=== PATIENT | female | born 1950 | race Caucasian/White ===

== ENCOUNTER 2017-05-31 10:24 | Inpatient (IN) ==
[2017-05-31] MEDS ORDERED: Ipratropium/Albuterol Neb 3 ML IH STA (11:53)
[2017-05-31] MEDS ORDERED: predniSONE 20 MG TABLET PO STA (11:57)
--- NOTE | 2017-05-31 11:57 | Emergency Department Note ---
Disposition Clinical Impression: Acute exacerbation of chronic obstructive airways disease Disposition: Admitted As Inpatient General Adult HPI - General Chief complaint: ED Shortness of Breath/Dyspnea Stated complaint: possible pneumonia Time Seen by Provider: 05/31/17 11:11 Source: patient Limitations: no limitations - History of Present Illness HPI Narrative: Patient has not been to the doctor in over 20 years presents to the emergency department with shortness of breath worsened over the last couple of days. When she is not sick, she coughs on a daily basis but does not bring up sputum. For the last 2 days, she is coughing more, and been bringing up green sputum. No chest pain or discomfort. She had subjective fever but did not check her temperature. She was out running around in the yard playing with the dogs a week ago, now cannot walk across the room without getting short of breath. No orthopnea. No peripheral edema. She uses inhalers at home that she buys over the Internet, they usually help but for the last couple of days have not. Pain Scale: 0 - Related Data Home Medications Medication Instructions Recorded Confirmed No Known Home Drugs 05/31/17 05/31/17 Allergies Allergy/AdvReac Type Severity Reaction Status Date / Time Penicillins Allergy Rash Verified 05/31/17 10:38 All systems ED: reviewed and negative except as stated. Past Medical History - Past Medical History Medical history: Reports: no medical history Psychiatric history: Reports: anxiety [employer] history: Reports: bilateral tubal ligation - Social History Smoking Status: Current every day smoker Smokeless Tobacco Status: No Alcohol use: Reports: none Drug use: Reports: none Physical Exam Vital signs noted please see nurse's notes. Gen.: Well-developed, well-nourished patient lying in bed who appears nontoxic. Head: Atraumatic, normocephalic. Eyes: Sclerae anicteric. ENT: Mucous membranes moist. Neck: No JVD or hepatojugular reflux. Heart: Regular rate and rhythm without appreciable murmur. Lungs: Normal respiratory pattern without respiratory distress, several conversational dyspnea at the end of a long sentences. Breath sounds somewhat diminished at the right base, this is a subtle finding. Scattered mild end expiratory wheezes and rhonchi. Abdomen: Soft, nontender, nondistended, no guarding or peritoneal signs. Skin: Warm and dry without rash. Neurologic: Awake, alert with normal speech and mental status. Cranial nerves grossly intact. No focal deficits or lateralizing signs. Psychiatric: Normal mood and affect. Musculoskeletal: No peripheral edema. No signs of trauma or DVT. - General Limitations: no limitations General appearance: alert, in no apparent distress Course Vital Signs Temperature 97.9 F 05/31/17 10:38 Pulse Rate 63 05/31/17 10:38 Respiratory Rate 18 05/31/17 10:38 Blood Pressure 125/82 05/31/17 10:38 O2 Sat by Pulse Oximetry 92 05/31/17 10:38 Temperature 97.9 F 05/31/17 10:38 Pulse Rate 93 05/31/17 13:22 Respiratory Rate 18 05/31/17 12:10 Blood Pressure 128/86 05/31/17 13:22 O2 Sat by Pulse Oximetry 92 05/31/17 13:22 Oxygen Delivery Oxygen Delivery Nasal Cannula Medical Decision Making - MDM Narrative Medical decision making narrative: The patient likely has undiagnosed COPD. She has not been physician in 20 years , she is a [id number] smoking history, and her history of daily cough suggests chronic bronchitis. We will check a chest x-ray rule out pneumonia, if negative will treat for acute exacerbation of previously undiagnosed COPD. The patient, her and son all agree that she will follow up with our residency clinic and I gave her referral. The importance primary care follow- up and screening for diseases such as hypertension, colon cancer, and diabetes, among others, were explained to the patient. She and her family voiced understanding. Re-eval: After treatment with nebulizers, her oxygen was still hanging around 92 %. Her daughter, who is a nurse, has arrived, and says that she checked her pulse ox intermittently, and she usually runs about 96%. He walked around the department, she developed minimal dyspnea, but her oxygen saturations dropped into the low mid 80s. I had a discussion with the patient and with her family. She is still hesitant to stay, but now is willing to stay. I have ordered oral steroids and oral Levaquin (equivalent to parenteral Levaquin), as well as another round and nebulizers. She has not had an IV, and I do not believe she needs one. I spoke with the hospitalist, who agrees. I also ordered a nicotine patch, since one of the main reasons that she does not want stay seems to be her concern about not being able to smoke.
[2017-05-31] MEDS ORDERED: Albuterol 2.5 MG/3 ML NEBULIZER IH STA (14:32)
[2017-05-31] MEDS ORDERED: levoFLOXacin 500 MG TABLET PO ONE (14:33)
[2017-05-31] MEDS ORDERED: Ipratropium/Albuterol Neb 3 ML IH PRN (15:39)
[2017-05-31] MEDS ORDERED: Naloxone 0.4 MG/ML INJ IVP PRN ×2 (15:40→15:42)
--- NOTE | 2017-05-31 15:46 | Internal Med History&Physical ---
Date of Encounter: 05/31/17 Time of Encounter: 15:44 Assessment and Plan (1) Acute exacerbation of chronic obstructive airways disease Current visit: Yes Status: Acute IV azithromycin, IV steroids, DuoNeb's (2) Tobacco abuse Current visit: Yes Status: Acute Nicotine patch. Cessation discussed Internal Medicine - H&P: HPI Chief complaint: SOB History of present illness: Ms. Gillespie is a 67 year old female who presents with COPD exacerbation. She has not seen a doctor for more than 30 years and takes no medicines. She is however of one pack per day smoker for more than 25 years. She presents with a couple day history of shortness of breath. Associated with cough productive for greenish sputum. Shortness of breath on ambulation to 30- 20 feet. She reports improvement of shortness of breath when she sits in a hot tub. She does not have any previous diagnosis of COPD EXAMINATION: TWO VIEWS OF THE CHEST 05/31/2017 12:06 pm COMPARISON: None. HISTORY: ORDERING SYSTEM PROVIDED HISTORY: SOB/cough FINDINGS: The heart size is within normal limits. The pulmonary vasculature is also within normal limits. No acute infiltrates are seen. The costophrenic angles are sharp bilaterally. No pneumothoraces are noted. XR/XR chest 2V IMPRESSION: 1. No active pulmonary disease. Past Med Surg Social Fam HX - Past Medical History Medical history: no medical history Psychiatric history: anxiety - Social History Smoking Status: Current every day smoker Smokeless Tobacco Status: No Alcohol use: none Drug use: none Internal Medicine - H&P: Meds No Known Home Drugs 05/31/17 [History] 3 Allergy/AdvReac Type Severity Reaction Status Date / Time Penicillins Allergy Rash Verified 05/31/17 10:38 All Systems PM: A 10-system review of systems was performed and is negative for pertinent findings except as documented above in the HPI. Review of systems: ROS 14 point review of systems reviewed as best as possible given presentation. Pertinent positive or negative as per HPI or otherwise reviewed as negative - Constitutional Vitals: Temp Pulse Resp BP Pulse Ox 97.9 F 93 18 128/86 92 05/31/17 10:38 05/31/17 13:22 05/31/17 12:10 05/31/17 13:22 05/31/17 13:22 Exam: General - AAO x 3 Psych - Appropriate affect/speech. No agitation Eyes - MICHELLE. Eye lids intact. No scleral icterus Heart - Sinus. RRR. S1 and S2 present. No added HS/murmurs appreciated. No elevated JVD appreciated. Lung - decreased air entry throughout. Diffuse wheeze. No crackles GI - Soft, non-tender. No hepatosplenomegaly/ascites. BS+ - No CVA/suprapubic tenderness or palpable bladder distension Skin - Intact. No rash/petechiae/ecchymosis. Warm extremities
[2017-05-31] MEDS ORDERED: Nicotine 21 MG PATCH.TD24 TD ONE (16:19)
[2017-05-31] MEDS: MethylPREDNISolone 40 MG/ML VIAL IVP SCH ×2 (18:29→23:11)
[2017-05-31] MEDS: Ipratropium/Albuterol Neb 3 ML IH SCH ×2 (18:34→20:09)
[2017-06-01] MEDS: Ipratropium/Albuterol Neb 3 ML IH SCH ×4 (03:13→21:55)
[2017-06-01] MEDS: *HR* Enoxaparin 40 MG/0.4 ML SYRINGE SQ SCH (05:00)
[2017-06-01] MEDS: MethylPREDNISolone 40 MG/ML VIAL IVP SCH ×2 (05:00→11:00)
[2017-06-01 05:32] LABS: Basophils % 0.4 %; Hematocrit 48.8 % (35.3-44.9); Hemoglobin 15.7 g/dL (11.5-15.4); Immature Granulocytes % 1.8 % (0-4); Lymphocytes # 0.5 K/mcL (0.6-4.6); Lymphocytes % 9.7 %; Mean Corpuscular HGB Conc 32.2 g/dL (31.6-35.5); Mean Corpuscular Hemoglobin 27.4 pg (28.0-33.3); Mean Corpuscular Volume 85.2 fL (83.0-100.0); Mean Platelet Volume 11.2 fL (9.4-12.4); Monocytes # 0.1 K/mcL (0.0-1.3); Monocytes % 2.4 %; Neutrophils # 4.7 K/mcL (1.6-8.9); Platelet Count 172 K/mcL (140-400); Red Blood Count 5.73 M/mcL (3.82-4.97); Red Cell Distribution Width 15.1 % (11.5-14.5); Segmented Neutrophils % 85.7 %
[2017-06-01 05:51] LABS: BUN/Creatinine Ratio 24 (6-26); Blood Urea Nitrogen 16 mg/dL (7-20); Calcium 9.2 mg/dL (8.6-10.8); Carbon Dioxide 23 mEq/L (19-29); Chloride 107 mEq/L (98-109); Glucose 180 mg/dL (70-99); Magnesium 2.2 mg/dL (1.6-2.6); Osmolality,Calculated 296 (280-300); Potassium 3.9 mEq/L (3.5-4.5); Sodium 140 mEq/L (136-145); eGFR For African Americans > 60 (> 60); eGFR For Non-African Americans > 60 (> 60)
[2017-06-01] MEDS: Nicotine 14 MG PATCH.TD24 TD SCH (07:48)
[2017-06-01] MEDS ORDERED: Azithromycin 500 MG in D5% in Water 250 ML IVPB SCH (09:00)
--- NOTE | 2017-06-01 16:59 | Pulmonology Consult Note ---
Date of Encounter: 06/01/17 Time of Encounter: 15:00 Assessment and Plan (1) Acute respiratory failure with hypoxia Current Visit: Yes Status: Acute Patient needs to be on oxygen at this time and she will need a 6 minute walk to checked, which oxygen she will need during exertion. This is all from her underlying COPD and they expect if she quit smoking and be treated appropriately for her COPD this is going to improve. (2) Acute exacerbation of chronic obstructive airways disease Current Visit: Yes Status: Acute Patient is on appropriate antibiotics and systemic steroid, however due to severity of her COPD exacerbation I will increase the dose and have her on oral for preparation to be discharged home. As outpatient she will need pulmonary function test and she will benefit from pulmonary rehabilitation. (3) Tobacco abuse Current Visit: Yes Status: Chronic Advised patient to quit smoking and offered treatment. History of Present Illness Consult date: 06/01/17 Requesting physician: Joe Gilliland Reason for consult: COPD Chief complaint: Shortness of breath History of present illness: This is a very pleasant 67-year-old female with significant smoking history for many years percent with worsening of dyspnea, productive cough, wheezing and she has been using inhalers, but she gets them online and turns out to be a long -acting beta agonist that she was using. She has noticed significant worsening of his shortness of breath comparing with about 6 months ago. Patient has lost about 30 pounds and she feels it was intentional. Patient has been hypoxic and she has been on oxygen while she is in the hospital. She feels slightly better but she continued to have wheezing. She had chest x-ray with no acute abnormalities. Past Med Surg Social Fam HX - Past Medical History Medical history: no medical history Psychiatric history: anxiety - Past Surgical History Surgical History: no surgical history - Social History Smoking Status: Current every day smoker Smokeless Tobacco Status: No Alcohol use: none Drug use: none - Family History Mother Age: 78 Living Status: Cause of : Resp distress, stoke Hx Family Cardiac Disorders: Yes Hx Family Respiratory Disorders: Yes Hx Family Cancer: No Hx Family GI Disorders: No Hx Family Genitourinary Disorders: No Hx Family Endocrine Disorder: No Hx Family Musculoskeletal Disorders: No Hx Family Neuromuscular Disorders: No Hx Family Neurologic Disorders: No Hx Family HEENT Disorders: No Hx Family Autoimmune Disorders: No Hx Family Reproductive Disorders: No Hx Family Psychosocial Disorders: No Hx Family Medical Disorders: No Medications and Allergies No Known Home Drugs 05/31/17 [History] 3 Allergy/AdvReac Type Severity Reaction Status Date / Time Penicillins Allergy Rash Verified 05/31/17 10:38 All Systems: A 10-system review of systems was performed and is negative for pertinent findings except as documented above in the HPI. Physical Examination Vital Signs: Vital Signs, Last 4 Hours Temp Pulse Resp BP Pulse Ox 06/01/17 15:49 98.4 F 74 18 135/77 89 06/01/17 15:47 18 90 General appearance: other (Patient in mild respiratory distress) Eyes: nonicteric ENT: oropharynx moist Mallampati (class): 3 Neck: supple, no lymphadenopathy Effort: mildly labored Inspection: hyperextended Auscultation: bilateral: wheezes Percussion: bilateral: not dull Cardiovascular: regular rate and rhythm Gastrointestinal: normoactive bowel sounds, non-distended Extremities: no edema, cyanosis normal mental status, non-focal exam mood appropriate Results - Laboratory Findings CBC and BMP: 06/01/17 03:58 06/01/17 03:58 Abnormal lab findings: Abnormal lab results RBC 5.73 M/mcL (3.82-4.97) H 06/01/17 03:58 Hgb 15.7 g/dL (11.5-15.4) H 06/01/17 03:58 Hct 48.8 % (35.3-44.9) H 06/01/17 03:58 MCH 27.4 pg (28.0-33.3) L 06/01/17 03:58 RDW 15.1 % (11.5-14.5) H 06/01/17 03:58 Lymphocytes # 0.5 K/mcL (0.6-4.6) L 06/01/17 03:58 Glucose 180 mg/dL (70-99) H 06/01/17 03:58 - Microbiology Findings Microbiology Findings: Microbiology, Last 48 Hours 06/01/17 14:13 Sputum Culture - Preliminary Sputum - Diagnostic Findings Chest x-ray: report reviewed, image reviewed - Clinical Findings Intake & Output: Intake & Output 06/01/17 06/01/17 06/01/17 07:59 15:59 23:59 Intake Total 240 / 240 1080 / 1080 Balance 240 / 240 1080 / 1080 Weight 88.451 kg Consult Discharge Plan - Plan Referrals: NONE,PCP [Primary Care Provider] -
[2017-06-01] MEDS ORDERED: ALPRAZolam 0.25 MG TABLET PO PRN ×2 (17:09→17:30)
--- NOTE | 2017-06-01 17:14 | Internal Med Progress Note ---
Date of Encounter: 06/01/17 Time of Encounter: 11:00 - Assessment and plan (1) Acute exacerbation of chronic obstructive airways disease Current Visit: Yes Status: Acute Assessment and plan: -Suspect exacerbation secondary to bacterial URI. -Will continue IV steroids and IV antibiotics in addition to dual nebs. -Pulmonology has been consulted and appreciate recommendations. (2) Acute respiratory failure with hypoxia Current Visit: Yes Status: Acute Assessment and plan: -Secondary to the above. -Will continue supplemental oxygenation (3) Tobacco abuse Current Visit: Yes Status: Chronic Assessment and plan: -Discussed with patient about smoking sensation. - Subjective Interval history: Patient short of breath this morning on examination but in no respiratory distress. - Constitutional Vitals: Temp Pulse Resp BP Pulse Ox 98.4 F 74 18 135/77 89 06/01/17 15:49 06/01/17 15:49 06/01/17 15:49 06/01/17 15:49 06/01/17 15:49 - Respiratory Respiratory exam: Present: wheezes. Absent: respiratory distress - Cardiovascular Cardiovascular exam: Present: RRR, +S1, +S2. Absent: diastolic murmur, gallop, rubs, systolic murmur Internal Medicine: Result - Labs CBC & Chem 7: 06/01/17 03:58 06/01/17 03:58 Labs: Short CBC 06/01/17 Range/Units 03:58 WBC 5.5 (4.3-11.1) K/mcL Hgb 15.7 H (11.5-15.4) g/dL Hct 48.8 H (35.3-44.9) % Plt Count 172 (140-400) K/mcL Neutrophils # 4.7 (1.6-8.9) K/mcL BMP 06/01/17 03:58 Sodium 140 Potassium 3.9 Chloride 107 Carbon Dioxide 23 BUN 16 Creatinine 0.67 Glucose 180 H Calcium 9.2 Consult Discharge Plan - Plan Referrals: NONE,PCP [Primary Care Provider] -
[2017-06-01] MEDS: Budesonide/Formoterol 160/4.5 MDI IH SCH (21:55)
[2017-06-02] MEDS: Ipratropium/Albuterol Neb 3 ML IH SCH ×2 (03:30→10:01)
[2017-06-02] MEDS: *HR* Enoxaparin 40 MG/0.4 ML SYRINGE SQ SCH (05:44)
[2017-06-02] MEDS ORDERED: predniSONE 10 MG TABLET PO SCH (08:00)
[2017-06-02] MEDS: Nicotine 14 MG PATCH.TD24 TD SCH (08:17)
[2017-06-02] MEDS ORDERED: Azithromycin 250 MG TABLET PO SCH (09:00)
[2017-06-02] MEDS ORDERED: Tiotropium 18 MCG inhalation IH SCH (10:00)
[2017-06-02] MEDS: Albuterol 2.5 MG/3 ML NEBULIZER IH SCH ×2 (10:58→16:15)
[2017-06-02] MEDS: Budesonide/Formoterol 160/4.5 MDI IH SCH (10:58)
--- NOTE | 2017-06-02 15:24 | Discharge Summary ---
Date of Encounter: 06/02/17 Time of Encounter: 12:00 - Discharge Diagnosis (1) Acute exacerbation of chronic obstructive airways disease Priority: Primary Status: Acute (2) Acute respiratory failure with hypoxia Priority: Primary Status: Acute (3) Tobacco abuse Priority: Secondary Status: Chronic - Discharge Medications Prescriptions: Albuterol Sulfate [Albuterol Inhaler] 1 puff IH Q4HR PRN #1 inhaler PRN Reason: Wheezing Azithromycin [Zithromax] 500 mg PO Q24H #7 tablet Nicotine Patch [Nicoderm] 14 mg TD DAILY #30 patch.td24 predniSONE [PredniSONE] See Taper PO BIDWM #36 tablet Tiotropium [Spiriva] 18 mcg IH DAILYR #1 inh Home Medications: Albuterol Sulfate [Albuterol Inhaler] 1 puff IH Q4HR PRN #1 inhaler 06/02/17 [Rx ] Azithromycin [Zithromax] 500 mg PO Q24H #7 tablet 06/02/17 [Rx] Nicotine Patch [Nicoderm] 14 mg TD DAILY #30 patch.td24 06/02/17 [Rx] Tiotropium [Spiriva] 18 mcg IH DAILYR #1 inh 06/02/17 [Rx] predniSONE [PredniSONE] See Taper PO BIDWM #36 tablet 06/02/17 [Rx] Allergies/Adverse Reactions: 3 Allergy/AdvReac Type Severity Reaction Status Date / Time Penicillins Allergy Rash Verified 05/31/17 10:38 Procedures/tests Complete & Pending: Procedures Performed prior 72 hours Category Date Time Status CT chest w con [CT] Routine Cat Scan 06/01/17 19:00 Completed Date of admission: 05/31/17 15:40 Primary care physician: PCP NONE Consults: 06/01/17 12:58 Consult to Pulmonology [CONS] Routine Consulting Provider: [facility] Reason for Consult: COPD exac Call Completed: Yes - Patient Status Disposition: Home, Self-Care Condition: Good - Discharge Instructions Follow Up With: NONE,PCP [Primary Care Provider] - Hospital course: Patient is a 67 year old female with past medical history significant for being a [id number] smoker who presented to the ER on 05/31/17 with shortness of breath. Patient reported of worsening dyspnea, productive cough and wheezing. She reported improvement of shortness of breath when she sat in the hot tub. Patient had been self-medicating with inhalers she got online. Patient also reported of a 30 pound unintentional weight loss. During patients hospital stay she was treated for COPD exacerbation with IV steroids and antibiotics. Pulmonology was also consulted with recommendations for discharge on a prednisone taper in addition to a short course of antibiotic. Patient will follow-up with pulmonary for additional pulmonary function tests. Time spent discussing smoking cessation with patient: 3 to 10 minutes - Time Spent with Patient Total time spent providing and/or coordinating discharge services: - Constitutional Vitals: Temp Pulse Resp BP Pulse Ox 97.8 F 75 20 122/72 94 06/02/17 11:22 06/02/17 11:22 06/02/17 11:22 06/02/17 11:22 06/02/17 12:04 - Respiratory Respiratory exam: Present: wheezes. Absent: accessory muscle use, respiratory distress
[2017-06-02 15:59] VITALS: BP 143/81
[2017-06-02] MEDS ORDERED: FLUARIX QUAD 2017-18 36MOS UP/PF 0.5 ML SYRINGE IM ONE (16:23)
--- NOTE | 2017-06-02 16:42 | Pulmonology Progress Note ---
Date of Encounter: 06/02/17 Time of Encounter: 07:45 Assessment and Plan (1) Acute respiratory failure with hypoxia Current Visit: Yes Status: Acute Overall patient is improving and I feel she will require less oxygen comparing to yesterday and another 6 minute walk would be helpful before she discharge home. (2) Acute exacerbation of chronic obstructive airways disease Current Visit: Yes Status: Acute Discussed with the respiratory therapist about her inhalers and she will need to be on Symbicort and Spiriva with the rescue inhaler and needs to be discharged home on dose inhalers. When she is ready to be discharged home, start tapering her prednisone and follow-up as outpatient. (3) Tobacco abuse Current Visit: Yes Status: Chronic Subjective Principal diagnosis: COPD exacerbation Interval history: Patient generally feeling better and her oxygenation is improving Objective PUL Vital signs: Last Vital Signs Temp 97.9 F 06/02/17 15:57 Pulse 51 06/02/17 15:57 Resp 20 06/02/17 15:57 BP 143/81 06/02/17 15:57 Pulse Ox 94 06/02/17 15:57 General appearance: no acute distress Eyes: nonicteric Mallampati (class): 3 Neck: supple Effort: mildly labored Auscultation: bilateral: wheezes Percussion: bilateral: not dull Cardiovascular: regular rate and rhythm Gastrointestinal: normoactive bowel sounds Extremities: no cyanosis normal mental status, non-focal exam mood appropriate Results - Laboratory Findings CBC and BMP: 06/01/17 03:58 06/01/17 03:58 Abnormal lab findings: Abnormal lab results RBC 5.73 M/mcL (3.82-4.97) H 06/01/17 03:58 Hgb 15.7 g/dL (11.5-15.4) H 06/01/17 03:58 Hct 48.8 % (35.3-44.9) H 06/01/17 03:58 MCH 27.4 pg (28.0-33.3) L 06/01/17 03:58 RDW 15.1 % (11.5-14.5) H 06/01/17 03:58 Lymphocytes # 0.5 K/mcL (0.6-4.6) L 06/01/17 03:58 Glucose 180 mg/dL (70-99) H 06/01/17 03:58 - Microbiology Findings Microbiology Findings: Microbiology, Last 48 Hours 06/01/17 14:13 Sputum Culture - Preliminary Sputum - Clinical Findings Intake & Output: Intake & Output 06/02/17 06/02/17 06/02/17 07:59 15:59 23:59 Intake Total 240 / 240 480 / 480 Balance 240 / 240 480 / 480 Weight 90.855 kg Consult Discharge Plan - Plan Instructions: Albuterol (By mouth), Prednisone (By mouth), Azithromycin (By mouth), Nicotine (Absorbed through the skin), Tiotropium (By breathing), How to Stop Smoking (GEN), Chronic Obstructive Pulmonary Disease (DC) Referrals: NONE,PCP [Primary Care Provider] - Prescriptions: Albuterol Sulfate [Albuterol Inhaler] 1 puff IH Q4HR PRN #1 inhaler PRN Reason: Wheezing Azithromycin [Zithromax] 500 mg PO Q24H #7 tablet Nicotine Patch [Nicoderm] 14 mg TD DAILY #30 patch.td24 predniSONE [PredniSONE] See Taper PO BIDWM #36 tablet Tiotropium [Spiriva] 18 mcg IH DAILYR #1 inh
--- NOTE | 2017-06-07 20:40 | Event Note ---
Date of Encounter: 06/07/17 Time of Encounter: 10:00 Patient was called on 06/06/17 to relay information that new prescription needed to be picked up for treatment of newly found culture results. She was not able to be reached and voicemail was left. Have not heard back from patient.
== END 2017-06-02 18:01 | disposition home or self-care (01) | DRG 190 ==
LOC: 3BNU 10:24 → EMEROO 10:24 → 3BNU 15:11 → SUATTDRO 15:40
PROVIDERS: ADMIT Internal Medicine Hematology & Oncology; ATTEND Hospitalist